=== PATIENT | male | born 1960 | race Asian ===

== ENCOUNTER 2017-08-18 10:22 | Emergency (ER) | payer SELFPAY ==
[2017-08-18 10:31] VITALS: BP 161/98
--- NOTE | 2017-08-18 11:03 | Emergency Department Report ---
ED Animal Bite HPI - General Chief Complaint: Animal Bite Stated Complaint: DOG BITE Time Seen by Provider: 08/18/17 10:51 Source: patient, family Mode of arrival: Ambulatory Limitations: No Limitations - History of Present Illness Initial Comments: This is a 57-year-old male presents to the emergency room status post dog bite. Patient is airport screener of the dog's. He said his doctor Tuesday and bothering eating and he was trying to pull them apart and Labrador bit his right hand and also scratched him on his forearm and thumb of right hand and left forearm. He reports pain at 5 out of 10 with movement. Tetanus vaccine is up-to-date. No medication taken prior to coming to the emergency room. Denies any medical problems. Denies any fever or chills. Denies any difficulty moving right hand or fingers to right hand. MD Complaint: animal bite -: This morning Right: Hand (laceration with scratch mcintyre from dog bite. Pain) Animal: dog Animal Control Notified: No Description: household pet Mechanism: bite, scratch, contact with mucous membr Pain Description: sharp Severity scale (0 -10): 5 Context: animals fighting Associated Symptoms: bleeding. denies: erythema, discharge from wound, fever, chills, rash, loss of consciousness, cough, headache, diaphoresis, shortness of breath Treatments Prior to Arrival: pressure - Related Data Patient Tetanus UTD: No Previous Rx's Medication Instructions Recorded Last Taken Type Acetaminophen/Codeine [Tylenol 1 tab PO Q6H PRN #15 tab 08/18/17 Unknown Rx /Codeine # 3 tab] Amoxicillin/K Clav Tab [Augmentin 1 tab PO Q12HR 10 Days #20 tab 08/18/17 Unknown Rx 875 mg] Ibuprofen [Motrin] 600 mg PO Q8H PRN #15 tablet 08/18/17 Unknown Rx Allergies Allergy/AdvReac Type Severity Reaction Status Date / Time No Known Allergies Allergy Unverified 08/18/17 10:27 ED Review of Systems ROS: Stated complaint: DOG BITE Other details as noted in HPI Constitutional: denies: chills, fever Eyes: denies: eye pain, eye discharge, vision change ENT: denies: throat pain, congestion Respiratory: denies: cough, shortness of breath, SOB with exertion, SOB at rest , stridor, wheezing Cardiovascular: denies: chest pain, palpitations, dyspnea on exertion, edema, syncope Gastrointestinal: denies: abdominal pain, nausea, vomiting, diarrhea Genitourinary: denies: urgency, dysuria Musculoskeletal: arthralgia. denies: back pain, joint swelling, myalgia Skin: other (lacerations in scratch buck from dog bite). denies: rash, lesions Neurological: denies: headache, weakness, numbness, paresthesias, confusion ED Past Medical Hx - Past Medical History Previous Medical History?: No - Surgical History Past Surgical History?: No - Family History Family history: hypertension - Social History Smoking Status: Never Smoker Substance Use Type: None - Medications Home Medications: Home Medications Medication Instructions Recorded Confirmed Last Taken Type Acetaminophen/Codeine [Tylenol 1 tab PO Q6H PRN #15 tab 08/18/17 Unknown Rx /Codeine # 3 tab] Amoxicillin/K Clav Tab [Augmentin 1 tab PO Q12HR 10 Days #20 tab 08/18/17 Unknown Rx 875 mg] Ibuprofen [Motrin] 600 mg PO Q8H PRN #15 tablet 08/18/17 Unknown Rx ED Physical Exam - General Limitations: No Limitations General appearance: alert, in no apparent distress - Head Head exam: Present: atraumatic, normocephalic, normal inspection - Eye Eye exam: Present: normal appearance, PERRL, EOMI Pupils: Present: normal accommodation - ENT ENT exam: Present: normal exam, normal orophraynx, mucous membranes moist, TM's normal bilaterally, normal external ear exam - Neck Neck exam: Present: normal inspection, tenderness, full ROM, other (no C-spine tenderness). Absent: meningismus, lymphadenopathy - Respiratory Respiratory exam: Present: normal lung sounds bilaterally. Absent: respiratory distress, wheezes, rales, rhonchi, stridor, chest wall tenderness, accessory muscle use, decreased breath sounds, prolonged expiratory - Cardiovascular Cardiovascular Exam: Present: regular rate, normal rhythm, normal heart sounds. Absent: systolic murmur, diastolic murmur - GI/Abdominal GI/Abdominal exam: Present: soft, normal bowel sounds. Absent: distended, tenderness, guarding, rebound, rigid - Extremities Exam Extremities exam: Present: normal inspection, full ROM, tenderness (tender to palpate to right hand palmar side. And also to right thumb 2 cm laceration between the web spaces), normal capillary refill (.), joint swelling (left thumb and right hand), other (full range of motion to all extremities, no no clubbing, cyanosis or edema. +2 pulses in all extremities. No neurovascular compromise). Absent: pedal edema, calf tenderness - Expanded Upper Extremity Exam Right General: Present: laceration, abrasion. Absent: normal inspection Shoulder Exam: Present: normal inspection, full ROM. Absent: tenderness, swelling, abrasion, laceration, ecchymosis, deformity, crepidus, dislocation, erythema, tenderness over AC joint Upper Arm exam: Present: normal inspection, full ROM. Absent: tenderness, swelling, abrasion, laceration, ecchymosis, deformity, crepidus, dislocation, erythema Elbow exam: Present: normal inspection, full ROM. Absent: tenderness, swelling , abrasion, laceration, ecchymosis, deformity, crepidus, dislocation, erythema, effusion, pain w/ pronation/supination, tenderness over radial head Forearm Wrist exam: Present: full ROM, abrasion (small abrasion that is superficial to the right forearm). Absent: normal inspection, tenderness, swelling, laceration, ecchymosis, deformity, crepidus, dislocation, erythema, tenderness over anatomical snuff box, pain with axial thumb loading Hand Wrist exam: Present: normal inspection, full ROM. Absent: tenderness, swelling, abrasion, laceration, ecchymosis, deformity, crepidus, dislocation, erythema, amputation, nail avulsion, subungual hematoma Hand L/R Front: 1 - Positive: other (deep laceration), laceration (3 cm). Negative: normal inspection, abrasion, nail injury (#), foreign body, amputation, avulsion Hand L/R Back: 1 - Small abrasion noted to right thumb 2 - Abrasion noted to right forearm 3 - Laceration noted to right webspace between the first and second finger Neuro motor exam: Present: wrist extension intact, thumb opposition intact, thumb IP flexion intact, thumb adduction intact, fingers 2-5 abduction intact Neurosensory exam: Present: 2-point discrimination, radial nerve intact Vascular: Present: normal capillary refill, radial pulse, brachial pulse, ulnar pulse. Absent: vascular compromise, Pallo, pulse deficit radial art, pulse deficit ulnar art, pulse deficit brachial art - Back Exam Back exam: Present: normal inspection, full ROM. Absent: tenderness - Neurological Exam Neurological exam: Present: alert, oriented X3, normal gait, reflexes normal. Absent: motor sensory deficit - Psychiatric Psychiatric exam: Present: normal affect, normal mood - Skin Skin exam: Present: warm, dry, intact, normal color, rash, abrasion, other ( laceration) - Expanded Skin Exam Expanded Type of lesion: Present: rash (3 cm to right palm on some side and 2 cm to right thumb between the webspace.), laceration, bite/sting, abrasion (left and right forearm and right thumb) Distribution of rash: [place] Description of rash: Present: tenderness, swelling (right hand). Absent: erythematous, discharge, fluctuant, indurated ED Course Vital Signs 08/18/17 10:27 Temperature 97.4 F L Pulse Rate 91 H Respiratory 18 Rate Blood Pressure 161/98 O2 Sat by Pulse 97 Oximetry - Reevaluation(s) Reevaluation #1: 08/18/17 14:37 Patient given [place] 5/325 2 tablets when necessary emergency room for pain. Motrin 800 mg by mouth given for pain. He said his pain has been resolved. He is also given strict vaccine to date tetanus 0.5 mL. Please refer to procedure note for detail on laceration repair. 08/18/17 14:41 Reevaluation #2: 08/18/17 14:41 Patient multiple abrasions to right and left upper extremity to include hand and areas soaked, cleansed with normal saline, iodine and Neosporin ointment placed the site. - Laceration /Wound Repair Right Palm Hand Wound Location: upper extremity (right Palm) Wound Length (cm): 3 Wound's Depth, Shape: into muscle, linear Wound Explored: no foreign body removed Irrigated w/ Saline (ccs): 300 Betadine Prep?: Yes Anesthesia: 1% Lidocaine Volume Anesthetic (ccs): 3 Wound Debrided: moderate Wound Repaired With: sutures Suture Size/Type: 4:0, nylon Number of Sutures: 4 Layer Closure?: No Sterile Dressing Applied?: Yes Right Finger Wound Location: upper extremity (right thumb between the webspaces of the first and second finger) Wound Length (cm): 2 Wound's Depth, Shape: superficial Wound Explored: no foreign body removed Irrigated w/ Saline (ccs): 200 Betadine Prep?: Yes Anesthesia: 1% Lidocaine Volume Anesthetic (ccs): 2 Wound Debrided: moderate Wound Repaired With: sutures Suture Size/Type: 4:0, proline Number of Sutures: 3 Layer Closure?: No Sterile Dressing Applied?: Yes Critical care attestation.: If time is entered above; I have spent that time in minutes in the direct care of this critically ill patient, excluding procedure time. ED Disposition Clinical Impression: Hand pain, right Dog bite of right hand including fingers with infection Qualifiers: Encounter type: initial encounter Qualified Code(s): S61.451A - Open bite of right hand, initial encounter Laceration of multiple sites of upper extremity Qualifiers: Encounter type: initial encounter Laterality: unspecified laterality Qualified Code(s): S41.119A - Laceration without foreign body of unspecified upper arm, initial encounter Disposition: DC- TO HOME OR SELFCARE Is pt being admited?: No Does the pt Need Aspirin: No Condition: Stable Instructions: Animal Bite (ED), Suture Care (ED), Laceration (ED), Arthralgia ( ED) Additional Instructions: Take antibiotic as prescribed Follow-up with your primary care physician in 4 days Return to the emergency room in 7-10 days to have stitches removed Keep affected area clean and dry. Followed discharge instruction on acute wound care . His attention emergency room if he developed signs of infection such as increased redness, difficulty moving fingers, drainage from site of dog bite, increasing pain, fever and/or chills Prescriptions: Acetaminophen/Codeine [Tylenol /Codeine # 3 tab] 1 tab PO Q6H PRN #15 tab PRN Reason: moderate to severe pain Amoxicillin/K Clav Tab [Augmentin 875 mg] 1 tab PO Q12HR 10 Days #20 tab Ibuprofen [Motrin] 600 mg PO Q8H PRN #15 tablet PRN Reason: Pain Referrals: PRIMARY CARE, [Primary Care Provider] - 08/22/17 return to, emergency room [Other] - 7-10 days ( In 7 to 10 days) Forms: Work/School Release Form(ED) ED Medical Decision Making - Radiology Data Radiology results: report reviewed X-ray of right hand reveals mild swelling and no foreign body or bony abnormality. This is stated by radiologist and reviewed by myself. Patient: YVONNE UNGER MR#: [id number] : 1960 Acct:[id number] Age/Sex: 57 / M ADM Date: 08/18/17 Loc: ED Attending Dr: Ordering Physician: MALATHI BAJWA Date of Service: 08/18/17 Procedure(s): XR hand 3+V RT Accession Number(s): [id number] cc: MALATHI BAJWA Fluoro Time In Minutes: Right hand: Dog bite with a deep laceration. Routine views demonstrates normal bony mineralization and alignment of the joints. Multiple metaphyseal cysts are identified in the distal first metacarpal but unrelated to the articulation. The joint spaces are all preserved. There may be mild swelling of the proximal second and third digits however no definite laceration and no foreign body identified. No underlying bone injury noted. Impression: Suspicion of mild swelling but no additional pathology noted. Transcribed By: RK Dictated By: ZEHRA DAVIS MD Electronically Authenticated By: ZEHRA DAVIS MD Signed Date/Time: 08/18/171347 DD/ 45 TD/TT: 08/18/171347 - Medical Decision Making ED course: Patient status post dog bite to his right hand and scratch mcintyre to his forearm. He was bitten by his own dogs and reported that dog's are up-to-date on vaccinations including rabies. His tetanus shot is not up-to-date. This happened this morning when he said adults or fighting over food and he tried to break up the fight and one of the dog accidentally bit him. Patient examined and found to have laceration to his right palm and also right webspace between thumb and second finger. Laceration is deep. He also has multiple scratch buck to his forearm bilaterally and right thumb and small superficial laceration to his left forearm. X-ray of the right hand done and no foreign body or bony abnormality. This is dictated by radiologist and reviewed by myself. X-ray report given to patient and he voiced understanding. Patient is stable and pain is controlled on pain medication A/P 1: Dog bite-sheet given Boostrix 0.5 mL in emergency room to update tetanus. 2: Laceration to right hand secondary to dog bite-multiple laceration to right hand repaired please refer to procedure note for details. 3: Abrasions multiple sites of her extremities-area cleansed with normal saline iodine and normal saline and Neosporin ointment placed the site. 4: Right hand pain- patient given [place] 5/325 2 tablets by mouth and Motrin in 800 mg by mouth in emergency room which managed his pain. Patient is stable and educated on acute wound care, medication, diagnosis, avoidance of infection, signs to look out for for infection, diagnosis and x- ray results and he voiced understanding. Patient discharged home in stable condition with prescription for Augmentin, Motrin and Tylenol No. 3 and to follow-up with primary care in 4 days and to return to emergency room for suture removal in 7 days. Patient voiced understanding. Vital signs stable. Afebrile. I discussed with him that if he develops any increase in redness, puslike drainage, fever and/or chills, increased in pain, restriction of movement to her extremities to return to the emergency room [facility]. - Differential Diagnosis fracture hand, contusion ,simple dog bite
[2017-08-18] MEDS ORDERED: BOOSTRIX IM ONE (11:58)
[2017-08-18] MEDS ORDERED: MOTRIN PO ONE (11:58)
[2017-08-18] MEDS ORDERED: NORCO 5/325 PO ONE (11:58)
[2017-08-18] MEDS ORDERED: TRIPLE ANTIBIOTIC TP ONE ×2 (11:58→12:06)
[2017-08-18] MEDS ORDERED: XYLOCAINE 1% MPF 5 mL INFILTRATI ONE (11:59)
[2017-08-18] MEDS ORDERED: NACL 0.9% IR ONE (12:00)
--- NOTE | 2017-08-18 14:10 | XRay Report ---
Right hand: Dog bite with a deep laceration. Routine views demonstrates normal bony mineralization and alignment of the joints. Multiple metaphyseal cysts are identified in the distal first metacarpal but unrelated to the articulation. The joint spaces are all preserved. There may be mild swelling of the proximal second and third digits however no definite laceration and no foreign body identified. No underlying bone injury noted. Impression: Suspicion of mild swelling but no additional pathology noted.
== END 2017-08-18 15:03 | disposition home or self-care (01) ==
LOC: ED 10:22
DX: S61.451A Open bite of right hand, initial encounter (principal); S41.111A Laceration without foreign body of right upper arm, initial encounter; W54.0XXA Bitten by dog, initial encounter; Y93.89 Activity, other specified; Y99.8 Other external cause status; Y92.89 Other specified places as the place of occurrence of the external cause
CPT/HCPCS: 90471; 90715; A6250